=== PATIENT | male | born 1985 | race Caucasian/White ===

== ENCOUNTER 2019-11-22 | Emergency (ER) | payer BC ==
[2019-11-22 15:28] LABS: HEMATOCRIT 40.8 % (39.0-50.0); HEMOGLOBIN 13.9 g/dl (14.0-18.0); IMMATURE GRANULOCYTES 0.4 % (0.0-5.0); MEAN CORPUSCULAR HGB 32.7 pG CALC (26.0-32.0); MEAN CORPUSCULAR HGB CONC 34.1 g/L CALC (32.0-36.0); NEUT# 3.22 thou/uL (1.82-7.42); RED BLOOD COUNT 4.25 mill/uL (4.70-6.10); RED CELL DISTRI WIDTH 12.6 % (11.5-15.5)
[2019-11-22 16:09] LABS: ALBUMIN 5.1 g/dL (3.2-5.0); ALKALINE PHOSPHATASE 126 u/l (38-126); ANION GAP 23 (6-22 (CALC)); BILIRUBIN, TOTAL 1.9 mg/dL (0.0-1.4); BUN 13 mg/dL (9-20); BUN/CREATININE RATIO 21 (12-20 (CALC)); CARBON DIOXIDE 26 mmol/l (22-30); CHLORIDE 95 mmol/l (95-108); CREATININE 0.6 mg/dL (0.7-1.3); GFR > 60 ML/MIN (>=60 (CALC)); GFR FOR AFR.AMER. > 60 ML/MIN (>=60 (CALC)); POTASSIUM 3.9 mmol/l (3.5-5.1); SGOT/AST 375 u/l (17-59); SODIUM 139 mmol/l (137-146); TOTAL PROTEIN 8.8 g/dL (6.3-8.2)
[2019-11-22 16:25] LABS: ETHYL ALCOHOL 381 mg/dl (0-30)
== END 2019-11-22 20:00 | DRG 897 ==
DX: F10.129 Alcohol abuse with intoxication, unspecified (principal); Y90.8 Blood alcohol level of 240 mg/100 ml or more; G62.9 Polyneuropathy, unspecified

== ENCOUNTER 2019-11-23 05:11 | Inpatient (IN) | payer BC, OTHER ==
[~2019-11-23] VITALS: Ht 182.9 cm; Wt 76.0 kg
[2019-11-23] VITALS (10 sets, daily range): BP systolic 103–129; BP diastolic 64–89
--- NOTE | 2019-11-23 05:27 | NUR ---
VIA EMS TO ROOM IN [facility] WITH KATHERINE IN ATTENDANCE.
--- NOTE | 2019-11-23 05:28 | NUR ---
PT. TO ROOM 12 VIA EMS WITH C/O FOUND PT. IN CELL HAVING A SEIZURE, WHEN EMS ARRIVED PT. WAS POST ICTAL. NOW PT. IS AWAKE ALERT AND ORIENTED, BILATERAL HAND TREMMORS NOTED. V/S STABLE.
--- NOTE | 2019-11-23 05:39 | NUR ---
IV DILANTIN STARTED PER MD ORDER. IV ATIVAN GIVEN AND MVI BAG GIVEN PER MD ORDER.
[2019-11-23 06:11] LABS: HEMATOCRIT 40.7 % (39.0-50.0); HEMOGLOBIN 13.6 g/dl (14.0-18.0); IMMATURE GRANULOCYTES 1.3 % (0.0-5.0); MEAN CELL VOLUME 98.1 fL CALC (80.0-100.0); MEAN CORPUSCULAR HGB 32.8 pG CALC (26.0-32.0); MEAN CORPUSCULAR HGB CONC 33.4 g/L CALC (32.0-36.0); NEUT# 3.86 thou/uL (1.82-7.42); RED BLOOD COUNT 4.15 mill/uL (4.70-6.10); RED CELL DISTRI WIDTH 12.8 % (11.5-15.5)
[2019-11-23 06:37] LABS: ALBUMIN 4.9 g/dL (3.2-5.0); ALKALINE PHOSPHATASE 112 u/l (38-126); BUN 9 mg/dL (9-20); BUN/CREATININE RATIO 17 (12-20 (CALC)); CHLORIDE 95 mmol/l (95-108); CREATININE 0.5 mg/dL (0.7-1.3); ETHYL ALCOHOL 38 mg/dl (0-30); GFR > 60 ML/MIN (>=60 (CALC)); GFR FOR AFR.AMER. > 60 ML/MIN (>=60 (CALC)); POTASSIUM 4.3 mmol/l (3.5-5.1); SGOT/AST 316 u/l (17-59); SODIUM 133 mmol/l (137-146); TOTAL PROTEIN 8.1 g/dL (6.3-8.2)
[2019-11-23 06:38] LABS: ANION GAP 29 (6-22 (CALC)); BILIRUBIN, TOTAL 2.8 mg/dL (0.0-1.4); CARBON DIOXIDE 13 mmol/l (22-30)
[2019-11-23 06:48] LABS: MYOGLOBIN 332 ng/mL (0 - 121)
--- NOTE | 2019-11-23 06:51 | NUR ---
REPORT TO JOHNNIE SHARP.
--- NOTE | 2019-11-23 06:51 | NUR ---
REPORT RECIEVED FROM JES RN; PT RETURNED FROM CT; MONITORING DEVICES REAPPLIED AND VSS; PT AOX3; ADVISED ON POC; OFFICER X 1 AT BEDSIDE; CALL LIGHT WITHIN REACH; WILL CONTINUE TO MONITOR
--- NOTE | 2019-11-23 07:50 | NUR ---
PT RESTING QUIETLY ON STRETCHER; EKG COMPLETED; VSS; OFFICER X 1 AT BEDSIDE; PT DENIES ANY NEEDS AT THIS TIME; CALL LIGHT WITHIN REACH; WILL CONTINUE TO MONITOR
[2019-11-23 08:08] LABS: URINE BILIRUBIN - DIPSTICK NEGATIVE (NEGATIVE); URINE BLOOD DIPSTICK NEGATIVE (NEGATIVE); URINE COLOR YELLOW; URINE GLUCOSE - DIPSTICK NEGATIVE (NEGATIVE); URINE KETONE >=80 mg/dL (NEGATIVE); URINE LEUK ESTERASE NEGATIVE (NEGATIVE); URINE NITRITE - DIPSTICK NEGATIVE (Negative); URINE PH 5.5 (4.5-8.0); URINE PROTEIN - DIPSTICK 30 mg/dL (NEG-TRACE); URINE SPECIFIC GRAVITY 1.025; URINE UROBILINOGEN - DIPSTICK 0.2 E.U./dL (0.2)
[2019-11-23 08:12] LABS: URINE MUCUS FEW hpf (NONE-FEW)
[2019-11-23 08:13] LABS: BARBITURATES NEGATIVE (NEGATIVE); COCAINE NEGATIVE (NEGATIVE); METHADONE NEGATIVE (NEGATIVE); OXCYCODONE NEGATIVE (NEGATIVE); TETRAHYDROCANNABIONOL POSITIVE (NEGATIVE); TRICYLIC ANTIDEPRESSANTS NEGATIVE (NEGATIVE)
--- NOTE | 2019-11-23 08:51 | NUR ---
PT RESTING ON STRETCHER; NO S/S OF DISTRESS NOTED; OFFICER X1 AT BEDSIDE; PT UPDATED ON POC AND WAIT TIME FOR ADMISSION; SEIZURE PRECAUTIONS IN PLACE; CALL LIGHT WITHIN REACH; WILL CONTINUE TO MONITOR
--- NOTE | 2019-11-23 09:50 | NUR ---
PT RESTING ON STRETCHER; NO S/S OF DISTRESS NOTED; OFFICER AT BEDSIDE; ADVISED OF CONTINUED WAIT TIME; WILL CONTINUE TO MONITOR
--- NOTE | 2019-11-23 10:30 | NUR ---
PT RESTING ON STRETCHER; NO S/S OF DISTRESS NOTED; OFFICER AT BEDSIDE; ADVISED OF PENDING TRANSFER TO ICU
--- NOTE | 2019-11-23 11:00 | NUR ---
PT TO ICU3 BY STRETCHER, ABLE TO AMBULATE TO NEW BED WITH SHAKY GAIT W/ASSIST x1. APD @BEDSIDE TO RECONNECT CUFFS x2. PT COOPERATIVE. PLACED ON MONITR.
--- NOTE | 2019-11-23 11:06 | NUR ---
Admission Note Report Given to: LILA COLE Transported by: Wheelchair X Stretcher Transported with: X Nurse Transporter X Patent IV O2 X Hvac Residential Service Technician Location: X ICU MS2
--- NOTE | 2019-11-23 11:30 | NUR ---
PT BROUGHT TO [facility] ER AFTER WITNESSED SEIZURE [facility] TODAY. WAS SEEN IN THIS ER YESTERDAY FOR ETOH/DUI. PER PT, HE HASNT HAD ANYTHING TO DRINK FOR 2 WEEKS. DENIES REC DRUGS BUT THC FOUND IN UDS. 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 DENIES ALLERGIES. NO HEARING AIDS, DENTURES, GLASSES. "DIPS" 1 CAN/DAILY. DOES NOT WANT FLU OR PNA VACCINE. LAST BM WAS YESTERDAY AM, DOES NOT NEED LAXATIVES. DENIES SKIN ALTERATIONS. DENIES FALLING. DRIVES HIMSELF. LIVES ALONE. DENIES PAIN, TAKES ADVIL AT HOME FOR PAIN. CAODAISM: NONE. PRIMARY LANGUAGE: KAZAKH. NO HOME HEALTH OR DC FROM HOSPITAL. PT HAS CUFFS TO LEFT WRIST & LEFT ANKLE. SURESH GIFFORD @BEDSIDE. PT EDUCATED ON BED CONTROLS & CALLBELL. PT UPDATED ON POC, MEDICATIONS & V/S.
--- NOTE | 2019-11-23 12:15 | NUR ---
DR CURRIE & JEANETTE CHOPRA, @BEDSIDE WITH PT/ИРИНА
--- NOTE | 2019-11-23 18:50 | NUR ---
REPORT FROM Bruno ARELLANO RN. ASSUMED PT. CARE.
--- NOTE | 2019-11-23 19:30 | NUR ---
PT. FOUND SITTING UP IN BED IN NO DISTRESS. RESPS EVEN AND UNLABORED. ANXIOUS, RESTLESS. SKIN WARM AND MOIST. PT. ORIENTED TO PERSON ONLY. STATES HE IS IN [place] AND THAT THE MONTH IS MAY. REORIENTED TO SITUATION PLACE AND TIME. GUARD STATES PATIENT IS HALLUCINATING. PT. DENIES HALLUCINATIONS. PATIENT INFORMED THAT THIS IS NOT ABNORMAL FOR HIS CONDITION, BUT HE CONTINUES TO DENY. LUNGS CTA. NO EDEMA NOTED. BP STABLE. HR SINUS. INTERMITTENTLY TACHY. AFEBRILE. BALBUENA. DYANA. BOWEL SOUNDS ACTIVE THROUGHOUT. PT. REMAINS SHACKLED TO LT. ANKLE BY GUARD. IV FLUIDS INFUSING AT 100 CC/HR TO LT. AC ORDERED. COBAN APPLIED TO RT. HAND IV PATIENT DOES HAVE SOME SWEATING TO AVOID LOSS OF IV SITE. WILL CONTINUE TO MEDICATE ORDERED AND MONITOR CLOSELY. CALL LIGHT WITHIN REACH.
--- NOTE | 2019-11-23 20:45 | NUR ---
PT. ACCUCHECK IS 130. PT. HALLUCINATING. ASKING IF THIS RN HAS TO WALK ACROSS THE GRASS EVERY TIME TO WALK INTO THE ROOM. GUARD REMAINS AT BEDSIDE. UPDATED ON CONDITION AND LIKELIHOOD OF CONTINUED DETERIORATION AND INCREASED AGGITATION. WILL CONTINUE TO CLOSELY MONITOR.
--- NOTE | 2019-11-23 22:15 | NUR ---
PT. REMAINS HIGHLY ANXIOUS AND AGGITATED. RESTLESS, UNABLE TO GET COMFORTABLE. GUARD ATTEMPTING TO REPOSITION CUFFS SO PATIENT CAN BE MORE COMFORTABLE. CALL LIGHT REMAINS WITHIN REACH. WILL CONTINUE TO CLOSELY MONITOR.
[2019-11-24] VITALS (51 sets, daily range): BP systolic 102–160; BP diastolic 67–101
--- NOTE | 2019-11-24 00:20 | NUR ---
PT. GROWING INCREASINGLY AGGITATED DESPITE BEING MEDICATED ORDERED. ER MD MADE AWARE, NO NEW ORDERS AT THIS TIME. MULTIPLE EPISODES OF URINARY INCONTINENCE. PERICARE PROVIDED AND LINENS CHANGED. REPEATEDLY ATTEMPTING TO CLIMB OUT OF BED. PT. REMAINS TREMULOUS AND UNSTEADY.
--- NOTE | 2019-11-24 00:30 | NUR ---
MD MADE AWARE OF PATIENT CONDITION. NEW ORDERS RECEIVED. WILL CONTINUE TO CLOSELY MONITOR.
--- NOTE | 2019-11-24 00:54 | NUR ---
PT. RESTRAINED PER PHYSICIAN ORDERS. HE REMAINS UNCOOPERATIVE AND ANXIOUS. PT. WAS THRASHING ABOUT THE BED AND PULLING AT LINES/TUBES/IV. PT. IN CUSTODY WITH SINGLE CUFF TO LT. WRIST AND LT. ANKLE. ORIENTED TO PERSON AND TIME. PT. THINKS HE AT HIS HOME. REORIENTED TO SITUATION. HE REMAINS ATTEMPTING TO PULL AT LINES AND TUBES.
--- NOTE | 2019-11-24 01:27 | NUR ---
TELEVISION TURNED OFF TO REDUCE STIMULATION. PT. REMAINS HIGHLY AGGITATED EVEN AFTER ADMINISTRATION OF IV ATIVAN 4 MG. HR FROM THE 115 RANGE UP TO 160 AT THIS TIME. GUARD REMAINS AT BEDSIDE. PT. REMAINS RESTRAINED BILAT SOFT WRIST AND ANKLE RESTRAINTS WITH APD CUFFS TO LT. WRIST AND LT. ANKLE. WILL CONTINUE TO CLOSELY MONITOR.
--- NOTE | 2019-11-24 01:51 | NUR ---
PT. REMAINS HIGHLY AGGITATED. ATTEMPTING TO BITE HIS SPO2 MONITOR OFF AND FLOPPING ALL OVER THE BED. GUARD REMAINS AT BEDSIDE. SPO2 IS 100%, BUT HEART RATE ELEVATED AT 150-160. VERBAL ATTEMPTS TO CALM PATIENT REMAINS UNSUCCESSFUL. VIGOROUSLY ATTEMPTING TO PULL OUT OF RESTRAINTS. REORIENTATION PROVIDED. GUARD REMAINS AT BEDSIDE.
--- NOTE | 2019-11-24 02:28 | NUR ---
MEDICATE WITH LIBRIUM PER PHYSICIAN ORDERS. PT. REMAINS UNCOOPERATIVE, HIGHLY AGGITATED, DIAPHORETIC AND TACHYCARDIC. WILL CONTINUE TO PROVIDE EMOTIONAL SUPPORT AND REORIENTATION.
--- NOTE | 2019-11-24 03:15 | NUR ---
NEW ORDERS RECEIVED FROM DR. GARRISON, WILL MEDICATE ORDERED.
--- NOTE | 2019-11-24 04:09 | NUR ---
PT. FOUND TO HAVE SWEATED AND DISLODGED BOTH IV SITES AT THIS TIME. NEW #20 PLACED TO LT. FOREARM, LABS OBTAINED AT THIS TIME AND LABELED. PT. MEDICATED PER DR. GARRISON ORDERS. PT. REMAINS HIGHLY ANXIOUS AND AGGITATED. HR IN THE 160-170'S. WILL WAIT FOR EFFECT AND NOTIFY PHYSICIAN ACCORDINGLY.
--- NOTE | 2019-11-24 04:43 | NUR ---
PT. HAS BEEN RESTING WITH SNORING RESPIRATIONS AT THIS TIME FOR APPROXIMATELY 5 MINUTES. NO THRASHING ABOUT THE BED OR AGGITATION. REMAINS DIAPHORETIC, BUT NOT AGGITATED. WILL CONTINUE TO CLOSELY MONITOR.
--- NOTE | 2019-11-24 05:12 | NUR ---
PT. AGAIN AWAKE AND HIGHLY AGGITATED. PT. IS PLEASANT AND ABLE TO BE REDIRECTED, BUT CONTINUES WITH HALLUCINATIONS AND ATTEMPTING TO CLIMB OUT OF BED. NO NOT AGGRESSIVE OR ABUSIVE TOWARDS STAFF, BUT DISORIENTED AND ATTEMPTS OT PULL OF LINES AND TUBES. WILL CONTIUE TO CLOSELY MONITOR AND MEDICATE ACCORDINGLY.
[2019-11-24 05:34] LABS: HEMATOCRIT 40.4 % (39.0-50.0); HEMOGLOBIN 13.7 g/dl (14.0-18.0); IMMATURE GRANULOCYTES 0.4 % (0.0-5.0); MEAN CELL VOLUME 96.2 fL CALC (80.0-100.0); MEAN CORPUSCULAR HGB 32.6 pG CALC (26.0-32.0); MEAN CORPUSCULAR HGB CONC 33.9 g/L CALC (32.0-36.0); NEUT# 5.01 thou/uL (1.82-7.42); RED BLOOD COUNT 4.2 mill/uL (4.70-6.10); RED CELL DISTRI WIDTH 12.2 % (11.5-15.5)
[2019-11-24 05:50] LABS: ALBUMIN 4.4 g/dL (3.2-5.0); ALKALINE PHOSPHATASE 107 u/l (38-126); BILIRUBIN, TOTAL 3.6 mg/dL (0.0-1.4); BUN 9 mg/dL (9-20); BUN/CREATININE RATIO 19 (12-20 (CALC)); CHLORIDE 95 mmol/l (95-108); CPK 410 u/l (52-200); CREATININE 0.5 mg/dL (0.7-1.3); GFR > 60 ML/MIN (>=60 (CALC)); GFR FOR AFR.AMER. > 60 ML/MIN (>=60 (CALC)); MAGNESIUM 1.4 mg/dL (1.6-2.3); POTASSIUM 3.5 mmol/l (3.5-5.1); SGOT/AST 292 u/l (17-59); SODIUM 134 mmol/l (137-146); TOTAL PROTEIN 7.8 g/dL (6.3-8.2)
[2019-11-24 05:52] LABS: ANION GAP 18 (6-22 (CALC)); CARBON DIOXIDE 25 mmol/l (22-30)
[2019-11-24 05:57] LABS: MYOGLOBIN 242 ng/mL (0 - 121)
--- NOTE | 2019-11-24 06:02 | NUR ---
GUARD CHANGE AT THIS TIME. PT. REMAINS AGGITATED AND HIGHLY TREMULOUS. STATES HE NEEDS TO HAVE A BM. PLACED ON BEDPAN AT THIS TIME.
--- NOTE | 2019-11-24 06:30 | NUR ---
PT. REMOVED FROM BEDPAN. HE CONTINUES TO TRY TO CLIMB OUT OF BED. PER PHARMACY, WE DO NOT HAVE ACCESS TO PHENOBARBITAL ORDERED BY DR. GARRISON. PT. REMOVED FROM BEDPAN AT THIS TIME. STATES HE NO LONGER NEEDS TO GO.
--- NOTE | 2019-11-24 07:10 | NUR ---
awake in bed; assessment completed at this time; pt alert to person and current year only; no s/sx of pain noted; pt severely restless/ anxious; tremors noted throughout upper extremities; pupils reactive; no n/v noted; audible and visual hallucinations noted; resp even and unlabored; lungs clear throughout; skin color wnl; drenched with sweat; ra; hr reg; strong pulses; no edema noted; st 150-160s on monitor; abd soft with bs present; no bm noted per health technical writer; rajan to gravity draining clear vanessa urine; cath strap intact; #20 to rfa patent with ivf infusing without complication; no redness or edema noted at site; pt in 4 point restraints; removed and reapplied for nursing care; [employer] present at bedside; pt cuffed to bed via left ankle; pt noted thrashing about in bed; pt requesting to go get his wallet out of the driveway; officer at bedside; will continue to monitor
--- NOTE | 2019-11-24 08:09 | NUR ---
awake in bed; continues to thrash about in bed; remains very restless/ anxious; grants officer present at bedside; iv intact with ivf infusing without complication; no redness or edema noted at site; st on monitor; rajan to gravity; pt continues with visual and audible hallucinations; will continue to monitor closely
--- NOTE | 2019-11-24 08:43 | NUR ---
Dr Marinelli present at bedside to assess pt and discuss plan of care; pt very confused/ anxious; st 150s on monitor; severe tremors noted; alert to person only; present at bedside; intubation discuss
--- NOTE | 2019-11-24 09:00 | NUR ---
pt relocated to ICU bed 1
--- NOTE | 2019-11-24 09:08 | NUR ---
0906- time out performed at bedside per protocol 0908- pt intubated by Steve Plascencia with 8.0 Fr EET secured at the 24cm lip line; vent settings AC mode, rate 16, TV 550, 5.0 Peep, FiO2 40%; radiology at bedside for placement confirmation; ng tube attempted per bilat nares and unsuccessful; restraint remain intact to bilat wrist; leg restraints removed; staff mine warfare officer present at bedside; positioned; will continue to monitor
--- NOTE | 2019-11-24 09:29 | NUR ---
PT INTUBATED BY ANESTHESOLOGIST AT 0908 W/#8.0 ET TUBE ORALLY SECURED AT 24CM ISABEL CONFIRMED PLACEMENT VIA CO2 DETECTOR AND AUSCULTAION XRAY PENDING PLACED ON VENT SETTINGS ON FLOW SHEET ALARMS ON AND AUDIBLE INTUBATION PERFORMED IN ORDER TO PROTECT PT AIRWAY
--- NOTE | 2019-11-24 10:00 | NUR ---
intubated and sedated; no apparent distress noted; guard at bedside; st on monitor; rajan to gravity; vent maintained and patent; officer at bedside; repositioned; will continue to monitor
--- NOTE | 2019-11-24 10:43 | NUR ---
more arousable; vent alarming; orally suctione for lg amount of clear thick oral secretions; repositione; propofol being titrated; will continue to monitor
--- NOTE | 2019-11-24 11:00 | NUR ---
easily arousable; propofol titrated for rass of -3; st on monitor; arms and feet noted with tremors; pt with copious amount of clear thick oral secretions; ng tube placed to right nare/clamped placement confirmed via air insertion/ascult; rajan to gravity; scd's intact; restraints intact; officer present at bedside; oral care; will continue to monitor
--- NOTE | 2019-11-24 12:00 | NUR ---
intubated and sedated; no apparent distress noted; iv intact and patent; diprivan gtt infusing at 60 mcg/kg/min; st/pac on monitor; rajan to gravity; vent intact and maintainded; officer present at bedside; restraints released and reapplied for nursing care; will continue to monitor
--- NOTE | 2019-11-24 14:00 | NUR ---
intubated and sedated; no apparent distress noted; resp even and unlabored; vent intact and maintained; st on monitor; rajan to gravity; restraints released and reapplied; oral care/ suctioning done; respoitioned to left side; officer present at bedside; vital stable; diprivan gtt infusing at 60 mcg/kg/min; iv's patent; will continue to monitor
--- NOTE | 2019-11-24 16:00 | NUR ---
pt intubated and sedated; no apparent distress noted; resp even and unlabored; vent maintained; st on monitor; rajan to gravity; officer at bedside; restraints released and reapplied for nursing care; Dr Marinelli present at bedside; urine output reviewed and verbal orders received; repositioned with oral care; will continue to monitor
--- NOTE | 2019-11-24 18:01 | NUR ---
intubated and sedated; vent maintained and patent; resp even and unlabored; rajan to gravity; iv intact and patent; diprivan gtt cont at 60 mcg/kg/min; rajan to gravity; st on monitor; deputy present at bedside;
--- NOTE | 2019-11-24 18:50 | NUR ---
REPORT FROM Brendan ZIEGLER RN. ASSUMED PT. CARE.
--- NOTE | 2019-11-24 19:30 | NUR ---
PT. RESTING STABLE ON THE VENTILLATOR. RESPS EVEN, UNLABORED. PT. SEDATED ON PROPOFOL AT 60 MCG AT THIS TIME. PT. SINUS TACH IN THE LOW 100'S. BP SLIGHLY LOW AT 105 SYSTOLIC. GUARD AT BEDSIDE. PT. REMAINS IN SOFT WRIST RESTRAINTS BILATERALLY. ORAL SUCTIONING AND CARE PROVIDED AT THIS TIME. SKIN WARM AND DRY. BOWEL SOUNDS ACTIVE. 8.0 ET TUBE 24 CM AT THIS LIP, ASSIST CONTROL, RATE OF 16, TIDAL VOL-550, PEEP OF 5 AND FIO2 OF 40%. PT. DOES ATTEMPT TO TURN HEAD AWAY WHEN PERFORMING ORAL CARE. DISTIL PULSES INTACT. LUNGS CTA. CALL LIGHT WITHIN REACH. WILL CONTINUE TO CLOSELY MONITOR.
--- NOTE | 2019-11-24 20:15 | NUR ---
PT. REPOSITIONED FOR COMFORT. CALL LIGHT REMAINS WITHIN REACH. WILL CONTINUE TO CLOSELY MONITOR.
--- NOTE | 2019-11-24 22:15 | NUR ---
ORAL CARE AND SUCTIONING PROVIDED AT THIS TIME. RESPS REMAIN UNLABORED ON THE VENT. SKIN REMAINS WARM AND SLIGHTLY DIAPHORETIC. PRPOFOL DRIP INFUSING AT 70 MCG AT THIS TIME. PT. INTERMITTENTLY AGGITATED AND ATTEMPTING TO REACH FOR TUBE. WILL CONTINUE TO MONITOR NEED FOR ATIVAN PRN.
--- NOTE | 2019-11-24 23:25 | NUR ---
PT. INTERMITTENTLY RESTLESS REACHING UP TO ATTEMPT TO PULL AT LINES/TUBES. WILL CONTINUE TO MEDICATE NEEDED FOR SEDATION.
[2019-11-25] VITALS (40 sets, daily range): BP systolic 86–123; BP diastolic 48–76
--- NOTE | 2019-11-25 01:02 | NUR ---
PT. REMAINS FEBRILE. MEDICATED PER PHSYICIAN ORDERS. WILL CONTINUE TO CLOSELY MONITOR FOR EFFECT. CALL LIGHT REMAINS WITHIN REACH. GUARD AT BEDSIDE.
--- NOTE | 2019-11-25 02:05 | NUR ---
PT. REMAINS AT 70 MCG PROPOFOL AT THIS TIME. CONTINUES TO NEED PRN ATIVAN FOR ELEVATED HR AND INCREASED RESP RATE. PULLING AGAINST RESTRAINTS INTERMITTENTLY. WILL CONTINUE TO CLOSELY MONITOR.
--- NOTE | 2019-11-25 03:15 | NUR ---
PT. REMAINS STABLE ON THE VENT. GUARD REMAINS AT BEDSIDE. BP STABLE, HR REMAINS SLIGHTLY ELEVATED IN THE 100-110'S. INTERMITTENTLY NOTED TO BE PULLING AGAINST RESTRAINTS. CALL LIGHT REMAINS WITHIN REACH. WILL CONTINUE TO CLOSELY MONITOR.
--- NOTE | 2019-11-25 04:45 | NUR ---
LAB AT BEDSIDE TO DRAW PT.
--- NOTE | 2019-11-25 05:05 | NUR ---
PORT CXR IN PROGRESS.
--- NOTE | 2019-11-25 05:10 | NUR ---
RT AT BEDSIDE TO PERFORM ABG.
[2019-11-25 05:19] LABS: HEMATOCRIT 38.6 % (39.0-50.0); HEMOGLOBIN 12.9 g/dl (14.0-18.0); IMMATURE GRANULOCYTES 0.7 % (0.0-5.0); MEAN CELL VOLUME 99.5 fL CALC (80.0-100.0); MEAN CORPUSCULAR HGB 33.2 pG CALC (26.0-32.0); MEAN CORPUSCULAR HGB CONC 33.4 g/L CALC (32.0-36.0); NEUT# 7.27 thou/uL (1.82-7.42); RED BLOOD COUNT 3.88 mill/uL (4.70-6.10); RED CELL DISTRI WIDTH 12.5 % (11.5-15.5)
[2019-11-25 05:43] LABS: ALBUMIN 3.6 g/dL (3.2-5.0); ALKALINE PHOSPHATASE 85 u/l (38-126); ANION GAP 14 (6-22 (CALC)); BILIRUBIN, TOTAL 4.1 mg/dL (0.0-1.4); BUN 5 mg/dL (9-20); BUN/CREATININE RATIO 10 (12-20 (CALC)); CARBON DIOXIDE 23 mmol/l (22-30); CHLORIDE 98 mmol/l (95-108); CREATININE 0.5 mg/dL (0.7-1.3); GFR > 60 ML/MIN (>=60 (CALC)); GFR FOR AFR.AMER. > 60 ML/MIN (>=60 (CALC)); MAGNESIUM 1.7 mg/dL (1.6-2.3); POTASSIUM 3.3 mmol/l (3.5-5.1); SGOT/AST 181 u/l (17-59); SODIUM 132 mmol/l (137-146); TOTAL PROTEIN 6.7 g/dL (6.3-8.2)
--- NOTE | 2019-11-25 05:45 | NUR ---
TOTAL CARE BED BATH GIVEN. PT. TOLERATED WELL. ATIVAN DRIP INFUSING AT 2 MG/HR AT THIS TIME. REMAINS STABLE ON THE VENT. MUCH MORE RESTFUL AND LESS AGGITATED. GUARD REMAINS AT BEDSIDE AT THIS TIME. CALL LIGHT REMAINS WITHIN REACH. WILL CONTINUE TO CLOSELY MONITOR.
--- NOTE | 2019-11-25 07:40 | NUR ---
pt intubated and sedated; no apparent distress noted; assessment completed at this time; pt sedated; no s/sx pain/ no facial grimaces; no n/v noted; resp even and unlabored; lungs clear; skin color wnl; vent intact and maintained with settings of AC Mode, TV 550, rate 16, peep 5.0, FiO2 of 40%; ETT secured at the 24 cm lip line; orally and ET suctioned; hr reg; strong pulses; no edema noted; sr-st on monitor; bilat scds intact; abd soft with bs present; no bm noted per magnetic tape typewriter operator; rajan to gravity cloudy vanessa urine; cath strap rivera intact; #20 patent to rfa wiht ivf/ ativan gtt at 2mg/hr infusing without complication; #20 patent to rh with diprivan gtt infusing at 70 mcg/kg/min; #22 started to lh/ flushed and patent; no redness or edema noted at site; bilat wrist released and reapplied for nursing care; repositioned; [employer] guard at bedside; call light within reach; will continue to monitor
--- NOTE | 2019-11-25 08:00 | NUR ---
intubated and sedated; no apparent distress noted; guard at bedside; iv intact and patent; ivf/ gtt infusing without complication; no redness or edema noted at sites; sr on monitor; restraints released and reapplied for nursing care; repositioned to left side; oral care and suctioning; will continue to monitor
--- NOTE | 2019-11-25 08:10 | NUR ---
Dr Marinelli present at bedside to assess pt and discuss plan of care
--- NOTE | 2019-11-25 09:27 | NUR ---
pt o2 sat noted at 89-91%; pt noted with eyes open; teeth clinched/ clamping ETT tube; tremors felt to upper extremities; resp rate 26; ativan gtt increased to 3 mg/hr; diprivan gtt titrated to 75 mcg/kg/min; iv's patent; guard at bedside; will continue to monitor
--- NOTE | 2019-11-25 09:48 | NUR ---
lungs now coarse; bite block place; pt noted with blood in mouth/ tongue; RT present at bedside; o2 sat 91%; ETT suctioned; auto service writer remains at bedside; will continue to monitor
--- NOTE | 2019-11-25 10:00 | NUR ---
intuabted and mod sedated; ativan gtt and profocol gtt infusing; bite vblock in place; rajan to gravity; iv's patent; no redness or edema noted at site; vent intact and maintained; settings per RT; ST on monitor; repositioned to right side with suctioning/ oral care; guard at bedside; will continue to monitor
--- NOTE | 2019-11-25 10:28 | NUR ---
Dr Marinelli called per engineering technical writer; updated on decline in pt condition; lungs coarse; pt noted with decrease in o2 sat/ low 90; MD aware of vent changes; MD informed of possible seizure due to blood in mouth/tongue; orders received and to be placed;
--- NOTE | 2019-11-25 12:00 | NUR ---
intubated and sedated; no apparent distress noted; resp even and unlabored; guard present at bedside; st on monitor; febrile; tylenol administered; rajan to gravity; orally suctioned/ ETT suctioned; repositioned to left side; restraints intact/released for nursing care; will continue to monitor
--- NOTE | 2019-11-25 13:30 | NUR ---
YU Avery called per repairer typewriter; informed of temp; aware pt receive tylenol with no effect; orders to be placed; will continue to monitor
--- NOTE | 2019-11-25 13:45 | NUR ---
ice packs applied to bilat axilla area;
--- NOTE | 2019-11-25 14:02 | NUR ---
intubated and sedated; no apparent distress noted; resp even and unlabored; spont resp noted; iv intact and patent; ativan gtt and propofol infusing without complication; st on monitor; rajan to gravity; repositioned to right side; oral care; bite block intact; will continue to monitor
--- NOTE | 2019-11-25 15:15 | NUR ---
intuabed and sedated; tremors noted to upper and lower extremities; resp rate 30/ vent set at 16; repositioned; medicated with toradol for fever; st 118-120s on monitor; will continue to monitor
--- NOTE | 2019-11-25 16:00 | NUR ---
intubated and sedated; no apparent distress noted; resp even and unlabored resp rate 26; o2 sat 95%; st on monitor; rajan to gravity; vent intact and maintained; rajan to gravity; repositioned to right side; guard at bedside; restraints continued; temp 100.2; will continue to monitor
--- NOTE | 2019-11-25 17:04 | NUR ---
officer Nelson with [employer] present at bedside; officer states pt has been bonded out of alf and is NO LONGER an inmate; [employer] has removed cuff amd released pt from their custody;
--- NOTE | 2019-11-25 18:00 | NUR ---
intubated and sedated; no apparent distress noted; repositioned to supine; iv intact with ativan gtt/propofol gtt infusing without complication; rajan to gravity; vent intact and patent; st on monitor;
--- NOTE | 2019-11-25 18:11 | NUR ---
family present at bedside; update provided; mother Jelena requesting to stay the night;
--- NOTE | 2019-11-25 18:45 | NUR ---
REPORT FROM Brendan ZIEGLER RN. ASSUMED PT. CARE.
--- NOTE | 2019-11-25 19:15 | NUR ---
PT. FOUND RESTING STABLE ON THE VENT IN ON DISTRESS. 8.0 ET TUBE 24 CM AT THE LIP. A/C-16, TIDAL VOL-550, PEEP OF 8, FIO2 OF 60%. REMAINS IN RESTRAINS AT THIS TIME. FAMILY UPDATED ON PATIENT STATUS. PT. MILDLY AGGITATED. FAMILY INFORMED OF NEED FOR REST AT THIS. UPDATED ON PLAN OF CARE. BOWEL SOUNDS ACTIVE. LUNGS CTA. DISTIL PULSES INTACT. VSS, SLIGHTLY TACHY. AFEBRILE AT 99.3 AT THIS TIME.
--- NOTE | 2019-11-25 20:15 | NUR ---
PT. REPOSITIONED FOR COMFORT. ORAL CARE AND SUCTIONING PROVIDED AT THIS TIME. PT. TOLERATED WELL. SKIN REMAINS WARM AND DRY. DYANA. BP/HR STABLE. WILL CONTINUE TO CLOSELY MONITOR.
--- NOTE | 2019-11-25 22:02 | NUR ---
PT. REMAINS STABLE ON THE VENT. CALL LIGHT REMAINS WITHIN REACH. ROM AND RELEASE PROVIDED. REMAINS WARM TO TOUCH, MILDLY MOIST. BP/HR STABLE. MEDICATED PER PHYSICIAN ORDERS. NO CHANGES IN VENT SETTINGS.
--- NOTE | 2019-11-25 23:54 | NUR ---
ZOSYN INFUSING WITHOUT SIGNS OF INFILTRATION OR REACTION NOTED. RESPS EVEN, UNLABORED ON THE VENT. RT AT BEDSIDE AND SUCTIONING PROVIDED. SUCTIONING PERFORMED TO RT. NARES WELL MODERATE AMOUNT OF NASAL DISCHARGE YELLOW/GREEN NOTED. IV FLUIDS INFUSING ORDERED. PROPOFOL INFUSING AT 75 MCG AT THIS TIME. ATIVAN DRIP INFUSING AT 4 MG/HR. REMAINS INTERMITTENTLY ATTEMPTING TO REACH UP. WILL CONTINUE TO CLOSELY MONITOR.
[2019-11-26] VITALS (50 sets, daily range): BP systolic 81–107; BP diastolic 44–66
--- NOTE | 2019-11-26 00:42 | NUR ---
SPOKE TO PATIENTS MOTHER AND UPDATED ON HIS CURRENT STATUS. REMAINS STABLE ON THE VENT. SETTINGS UNCHANGED. ATIVAN DRIP INFUSING AT 4 MG/HR, PROPOFOL DRIP AT 75 MCG. REMAINS WITH SATISFACTORY SEDATION AT THIS TIME. WILL CONTINUE TO CLOSELY MONITOR. REPOSITIONED TO LT. SIDE AT THIS TIME. AFEBRILE.
--- NOTE | 2019-11-26 02:15 | NUR ---
ORAL CARE AND SUTIONIN PROVIDED. PT. REMAINS ON 4MG/HR ATIVAN DRIP AND 75 MCG PROPOFOL DRIP. REMAINS RESTFUL ON THE VENT. ORAL CARE AND SUCTIONING PROVIDED AND PT. REPOSITOINED FOR COMFORT. CALL LIGHT REMAINS WITHIN REACH.
--- NOTE | 2019-11-26 03:55 | NUR ---
PT. STATUS REMAINS UNCHANGED ON THE VENTILLATOR. SINUS IN THE 90'S NOW AT THIS TIME. CALL LIGHT WITHIN REACH. BP/HR STABLE. PT. WITHOUT RESTLESSNESS AT THIS TIME. STABLE.
--- NOTE | 2019-11-26 04:40 | NUR ---
LAB AT BEDSIDE AT THIS TIME TO DRAW PATIENT.
[2019-11-26 05:24] LABS: HEMATOCRIT 34.2 % (39.0-50.0); HEMOGLOBIN 11.3 g/dl (14.0-18.0); MEAN CELL VOLUME 99.7 fL CALC (80.0-100.0); MEAN CORPUSCULAR HGB 32.9 pG CALC (26.0-32.0); RED BLOOD COUNT 3.43 mill/uL (4.70-6.10); RED CELL DISTRI WIDTH 13.1 % (11.5-15.5)
[2019-11-26 05:44] LABS: ALKALINE PHOSPHATASE 56 u/l (38-126); ANION GAP 11 (6-22 (CALC)); BILIRUBIN, TOTAL 2.7 mg/dL (0.0-1.4); BUN 9 mg/dL (9-20); BUN/CREATININE RATIO 18 (12-20 (CALC)); CARBON DIOXIDE 21 mmol/l (22-30); CHLORIDE 104 mmol/l (95-108); CPK 319 u/l (52-200); CREATININE 0.5 mg/dL (0.7-1.3); GFR > 60 ML/MIN (>=60 (CALC)); GFR FOR AFR.AMER. > 60 ML/MIN (>=60 (CALC)); MAGNESIUM 1.4 mg/dL (1.6-2.3); POTASSIUM 3.2 mmol/l (3.5-5.1); SGOT/AST 86 u/l (17-59); SODIUM 132 mmol/l (137-146)
[2019-11-26 05:49] LABS: ALBUMIN 2.5 g/dL (3.2-5.0); TOTAL PROTEIN 5.1 g/dL (6.3-8.2)
--- NOTE | 2019-11-26 06:15 | NUR ---
COMPLETE BED BATH AND LINEN CHANGE PERFORMED. PT. TEMP IMPROVED AT THIS TIME. 99.7 AXILLARY. BP/HR STABLE. CALL LIGHT REMAINS WITHIN REACH. WILL CONITNUE TO CLOSELY MONITOR.
--- NOTE | 2019-11-26 07:02 | NUR ---
PORT XR COMPLETED
--- NOTE | 2019-11-26 07:25 | NUR ---
Pt remains intubated and sedated; no apparent distress noted; assessment completed, see interventions; pt sedated; no s/sx pain/ discomfort noted; resp even and unlabored; lungs clear; skin color wnl; vent intact and maintained; see flowsheet for settings; ETT at the 22 cm lip line; orally and ET suctioned; 12F NG intact in r nare to LISscant drng noted ; hr reg; strong pulses; some general extremity edema noted; sr-st on monitor; bilat scds intact; abd soft with bs present; no bm noted per telegraphic typewriter operator; rajan to gravity cloudy tea urine; cath strap rivera intact; #20 bilat wrist released and reapplied for nursing care; repositioned; call light within reach; will continue to monitor
--- NOTE | 2019-11-26 09:00 | NUR ---
Phone consent obtained from pt's parents for tlc insertion; at bedside currently performing insertion.
--- NOTE | 2019-11-26 09:40 | NUR ---
PARENTS AT BEDSIDE UPDATED REGARDING PLAN OF CARE.
--- NOTE | 2019-11-26 10:08 | NUR ---
Pt repositioned and oral care performed; call bean within reach; restraints remain in place to prevent self extubation, spoke with parents via telephone and updated them regarding plan of care.
--- NOTE | 2019-11-26 11:39 | NUR ---
PT RESTING, NO S/S OF DISTRESS NOTED, CALL SOW WITHIN REACH
--- NOTE | 2019-11-26 13:15 | NUR ---
PT RESTING, TURNED Q2H, FAMILY MEMBERS INTERMITTENLY AT BEDSIDE, AWARE OF URINE OUTPUT, BOLUS INFUSING ORDERED WILL CONTINUE TO MONITOR.
--- NOTE | 2019-11-26 13:27 | NUR ---
S: RENÉ PATINO is a 34 M who presents with sepsis, aspiration pneumonia, and alcohol withdrawal. He has a history of neuropathy, ETOH abuse, and seizures. All medications in patient's chart were reviewed. O: VS: BP: 97/449 mmHg, P: 104 beats/min, RR: 20 breaths/min, T: 98.6 F W: 76 kg, HT: 72 in, Scr: 0.5 mg/dL, CrCl: 189 ml/min A: Blood culture is pending. Sputum culture is pending. Preliminary results show normal respiratory isiah. P: Patient is on Zosyn 3.375 gm IV Q6H. Vancomycin ordered for pharmacy to dose. Start Vancomycin 1 gm IV Q8H at 0200,1000,1800. Vancomycin trough is drawn before the 4th dose on 11/27/19 at 09:30. Vancomycin goal trough is between 15-20 mcg/ml. Pharmacy will follow and or advise on antibiotics use as needed.
--- NOTE | 2019-11-26 14:36 | NUR ---
URINE OUTPUR REMAINS SUBOPTIMAL, LIZETH NOTIFY , MOTHER CURRENTLY AT BEDSIDE, CALL SOW WITHINR EACH; SLIGHTLY FEBRILE WILL MEDICATE ORDERED
--- NOTE | 2019-11-26 15:30 | NUR ---
MD AWARE OF URINE OUTPUT AND LASIX ORDERED AND ADMINISTERED ORDERED.
--- NOTE | 2019-11-26 15:47 | NUR ---
PT RESTING, WILL MONITOR URINE OUT PUT POST LASIX, MOM REMAINS AT BEDSIDE
--- NOTE | 2019-11-26 15:57 | NUR ---
R.T. AT BEDSIDE DECREASEING FiO2 TO 40%
--- NOTE | 2019-11-26 15:59 | NUR ---
FIO2 DECREASED TO 40%
--- NOTE | 2019-11-26 16:21 | NUR ---
REPORT RECEIVED FROM LILA KAMINSKI.
--- NOTE | 2019-11-26 16:30 | NUR ---
MOTHER AT BEDSIDE.
--- NOTE | 2019-11-26 17:13 | NUR ---
RT AT BEDSIDE FOR BREATHING TREATMENT.
--- NOTE | 2019-11-26 19:40 | NUR ---
PT REPOSITIONED ONTO RIGHT SIDE WITH PILLOWS; FEET ELEVATED. PT DIAPHORETIC WITH HOT MOIST SKIN; TEMP 97.7; ACCU CHECK 113. PT RESTING WITH RASS SCALE OF -4. INTUBED WITH SIZE 8 TUBE; 24 AT THE LIP; FIO2 40%; PEEP 8; RESP AT 16; TV 550. NG TUBE TO RIGHT NARE; 12F 24 AT THE NOSE; SECURED TO NOSE. PROPOFOL DRIP INFUSING AT 75 MCG/MIN; ATIVAN AT 4MG/HR; D5NS AT 150 ML/HR. RIGHT SUBCLAVIAN TRIPLE LUMEN APPEARS HEALTHY AND ALL LUMENS FLUSH WELL. PERIPHERAL LINES TO RFA AND RH APPEAR HEALTHY AND FLUSH. BILATERAL SOFT WRIST RESTRAINTS INTACT WITH GOOD CSM TO HANDS. CORRALES CATHETER DRAINING YELLOW/GREEN COLORED URINE IN ADEQUATE AMOUNTS; SECURED TO LEFT THIGH. NICOTINE PATCH ON. SCD'S INTACT TO BLE. SAFETY MEASURES IN PLACE. NEEDS ARE ANTICIPATED BY STAFF.
--- NOTE | 2019-11-26 20:07 | NUR ---
LEVOPHED TITRATED DOWN TO 70 MCG/MIN DUE TO HYPOTENSION. BP CURRENTLY 82/48 MAP 56 HR 94.
--- NOTE | 2019-11-26 20:29 | NUR ---
LEVOPHED TITRATED DOWN TO 65 MCG/MIN. BP 87/51 MAP 62 HR 94.
--- NOTE | 2019-11-26 21:15 | NUR ---
LEVOPHED TITRATED DOWN TO 60 MCG/MIN; BP 85/44 MAP 59 HR 84. RASS SCORE REMAINS -4; PT REMAINS ADEQUATELY SEDATED. ATIVAN CONTINUES TO INFUSE AT 4MG/HR AND D5NS AT 150 ML/HR. PT RESPOSITIONED ONTO BACK WITH HOB ELEVATED 30 DEGREES.
--- NOTE | 2019-11-26 22:36 | NUR ---
ATIVAN TITRATED DOWN TO 2 MG/HR. LEVOPHED NOW INFUSING AT 55 MCG/MIN. BP 87/54 MAP 65 HR 91. PT RESTING WITH NO SIGNS OF DISTRESS. WILL CONTINUE TO MONITOR.
--- NOTE | 2019-11-26 23:06 | NUR ---
TUBING REPLACED ON NEW BOTTLE OF DIPRIVAN. PT HAD LARGE THICK YELLOW SPUTUM DRAINING FROM MOUTH; ORAL CARE GIVEN. RT AT BEDSIDE FOR DEEP SUCTION AND BREATHING TREATMENT. REPOSITIONED ONTO LEFT SIDE; RESTRAINTS REMOVED FOR REPOSITIONING AND REAPPLYED.
--- NOTE | 2019-11-26 23:55 | NUR ---
BLOOD PRESSURES ARE IMPROVING; 104/66 MAP 81 HR 95. PT RESTING COMFORTABLY. AFEBRILE. SKIN WARM AND DRY.
[2019-11-27] VITALS (51 sets, daily range): BP systolic 90–128; BP diastolic 52–97
--- NOTE | 2019-11-27 02:19 | NUR ---
VSS; SPO2 100%. PROPOFOL REMAINS AT 55 MCG/MIN AND ATIVAN AT 2 MG/HR. REPOSTIONING EVERY 2 HOURS WITH PILLOWS. CORRALES CONTINUES TO DRAIN YELLOW/GREEN COLORED URINE; LIGHT BROWN GASTRIC CONTENT FROM NG TUBE IN SMALL AMOUNTS. SAFETY MEASURES IN PLACE.
--- NOTE | 2019-11-27 04:53 | NUR ---
LABS DRAWN FROM R SUBCLAVIAN CENTRAL LINE WITHOUT DIFFICULTY. RT AT BEDSIDE FOR BREATHING TREATMENT AND ABG. PT REPOSITIONED.
[2019-11-27 05:03] LABS: HEMOGLOBIN 10.8 g/dl (14.0-18.0); IMMATURE GRANULOCYTES 5.8 % (0.0-5.0); MEAN CELL VOLUME 100.9 fL CALC (80.0-100.0); MEAN CORPUSCULAR HGB CONC 32.7 g/L CALC (32.0-36.0); PLATELET COUNT 126 thou/uL (130-400); RED BLOOD COUNT 3.27 mill/uL (4.70-6.10); RED CELL DISTRI WIDTH 13.3 % (11.5-15.5)
[2019-11-27 05:19] LABS: ALBUMIN 2.5 g/dL (3.2-5.0); ALKALINE PHOSPHATASE 66 u/l (38-126); ANION GAP 9 (6-22 (CALC)); BILIRUBIN, TOTAL 2.5 mg/dL (0.0-1.4); BUN 10 mg/dL (9-20); BUN/CREATININE RATIO 21 (12-20 (CALC)); CARBON DIOXIDE 22 mmol/l (22-30); CHLORIDE 106 mmol/l (95-108); CREATININE 0.5 mg/dL (0.7-1.3); GFR > 60 ML/MIN (>=60 (CALC)); GFR FOR AFR.AMER. > 60 ML/MIN (>=60 (CALC)); POTASSIUM 3.2 mmol/l (3.5-5.1); SGOT/AST 57 u/l (17-59); SODIUM 134 mmol/l (137-146); TOTAL PROTEIN 5.1 g/dL (6.3-8.2)
[2019-11-27 05:24] LABS: MAGNESIUM 2.3 mg/dL (1.6-2.3)
[2019-11-27 05:37] LABS: BAND 34 % (0-8); MANUAL DIFFERENTIAL YES
--- NOTE | 2019-11-27 06:16 | NUR ---
RADIOLOGY AT BEDSIDE FOR CXR.
--- NOTE | 2019-11-27 08:25 | NUR ---
ATIVAN & PROPOFOL DRIPS STOPPED FOR WAKE TRIAL. DR BAUMANN @BEDSIDE. RT NOTIFIED.
--- NOTE | 2019-11-27 08:33 | NUR ---
ORAL SUCTION COMPLETE. PT WINCING EYES, NOT FOLLOWING COMMANDS YET. SKIN WARM/ DIAPHORETIC. TEMP 98.1 TYMP. CURTAINS OPEN & LIGHTS ON.
--- NOTE | 2019-11-27 08:45 | NUR ---
PT RESPONDING BY SQUEEZING MY HAND, OPENING EYES. RT & MD @BEDSIDE.
--- NOTE | 2019-11-27 08:59 | NUR ---
PT STILL WAKING UP, BREATHING OVER TUBE.
--- NOTE | 2019-11-27 09:17 | NUR ---
RT FREQUENTLY AT BEDSIDE TO ADJUST VENT SETTINGS. @BEDSIDE FOR OBS.
--- NOTE | 2019-11-27 09:30 | NUR ---
FREQUENT SUCITONING COMPLETED. MOM CALLED TO INFORM OF EXTUBATION, SHE "WILL HEAD THIS WAY". LINES FLUSHED OF PROPOFOL & ATIVAN.
--- NOTE | 2019-11-27 09:33 | NUR ---
OLD NICOTENE PATCH REMOVED, NEW PATCH APPLIED TO LEFT UPPER ARM.
--- NOTE | 2019-11-27 09:48 | NUR ---
VANCO THROUGH DRAWN FROM CENTRAL LINE.
--- NOTE | 2019-11-27 10:00 | NUR ---
DR BAUMANN @BEDSIDE. RBVO TO DC ALL IVF, INCLUDING BANANA BAG.
--- NOTE | 2019-11-27 10:37 | NUR ---
MOM & DAD @BEDSIDE UPDATED.
--- NOTE | 2019-11-27 11:27 | NUR ---
RT @BEDSIDE FOR BREATHING TREATMENT. PARENTS @BEDSIDE PRAYING OVER PT.
--- NOTE | 2019-11-27 11:28 | NUR ---
PT UNABLE TO WEAN ON INITIAL TRY. PT PLACED IN SIMV MODE PS 10 RESTING WITH FAMILY AT BEDSIDE AT THIS TIME.
--- NOTE | 2019-11-27 13:14 | NUR ---
S: RENÉ PATINO is a 34 M who presents with aspiration pneumonia and sepsis. He has a history of neuropathy, ETOH abuse, and seizures. All medications in patient's chart were reviewed. O: VS: BP: 126/68 mmHg, P: 98 beats/min, RR: 22 breaths/min, T: 98.1 F W: 76.345 kg, HT: 72 in, Scr: 0.5 mg/dL, CrCl: 189 ml/min Vancomycin trough on 11/27/19 at 09:30 was 9 mcg/mL. A: Blood culture is pending. Final sputum culture shows normal respiratory isiah. Vancomycin trough is subtherapeutic. P: Patient is on Zosyn 3.375 gm IV Q6H. Vancomycin ordered for pharmacy to dose. Increase Vancomycin to 1250 mg IV Q8H at 0200, 1000, and 1800. Vancomycin trough to be drawn on 11/28/19 at 17:30. Vancomycin goal trough is between 15-20 mcg/ml. Pharmacy will follow and or advise on antibiotics use as needed.
--- NOTE | 2019-11-27 13:45 | NUR ---
DR BAUMANN @BEDSIDE. RBVO START NS IV @75ML/HR. TRY TO WEAN AGAIN AT 1600 TODAY.
--- NOTE | 2019-11-27 14:58 | NUR ---
REGISTRATION AT [facility] TO SPEAK WITH FAMILY.
--- NOTE | 2019-11-27 15:58 | NUR ---
PROPOFOL STOPPED FOR WEAN TRIAL.
--- NOTE | 2019-11-27 16:02 | NUR ---
RT @BEDSIDE SUCIONING PT. PT EYES OPEN, SMILE TO DADS VOICE.
--- NOTE | 2019-11-27 16:39 | NUR ---
PT STILL DROWSY- OCCASSIONAL EYE OPENING, FEET REACTIVE TO REFLEX CHECK. PT OCCASSIONALLY PULLING ON RESTRAINTS. NO FOLLOWING DIRECTION YET. WEAK SQUEEZE. MOM & DAD ON EACH SIDE TRYING TO WAKE PT.
--- NOTE | 2019-11-27 16:46 | NUR ---
ICE PACK PLACED ON PTS GROIN TO HELP STIMULATE PT AWAKE.
--- NOTE | 2019-11-27 17:00 | NUR ---
PROPOFOL RESTARTED, WILL TRY WAKE TRIAL AGAIN TOMORROW. VENT LEFT ON SIMV BY RT TO "ALLOW PT TO USE OWN LUNGS"
--- NOTE | 2019-11-27 17:58 | NUR ---
RT CALLED TO ROOM AFTER VENT ALARMING FOR HIGH RESPIRATIONS. VENT PLACED BACK IN AC
--- NOTE | 2019-11-27 19:13 | NUR ---
REPORT RECEIVED FROM LILA COLE.
--- NOTE | 2019-11-27 20:51 | NUR ---
PT RESTING WITH EYES CLOSED; RASS SCORE OF -3. PROPOFOL INFUSING AT 25 MCG/MIN; NS AT 75. R/U TEMPERAURE OF 99.7. PT REPOSITIONED WITH PILLOWS. CLEAR YELLOW URINE EMPTIED FROM CORRALES. SOFT WRIST RESTRAINTS ARE ON; 2 FINGERWIDTH BETWEEN RESTRAINT AND SKIN; GOOD CSM TO HANDS. NEEDS ARE ANTICIPATED BY STAFF.
--- NOTE | 2019-11-27 23:27 | NUR ---
RT AT BEDSIDE FOR BREATHING TREATMENT AND SUCTIONING.
[2019-11-28] VITALS (26 sets, daily range): BP systolic 104–149; BP diastolic 59–89
--- NOTE | 2019-11-28 00:03 | NUR ---
RT AT BEDSIDE. SPO2 DECREASED TO 89% TEMPORARILY AND REMAINED AT 92%. O2 ON VENT INCREASED FROM 32% TO 40%; SPO2 NOW 92%. RT AT BEDSIDE TO EVALUATE. WILL CONTINUE TO MONITOR.
--- NOTE | 2019-11-28 02:59 | NUR ---
COMPLETE BED GIVEN WITH LINEN CHANGE AND ORAL CARE. RESTRAINTS AND SCD'S REMOVED FOR BATH AND REAPPLIED; ALL SOILED EQUIPMENT REPLACED. 650ML OF DARK BRINA URINE EMPTIED FROM URINAL. VSS. NOW 100% SPO2 ON 40% ASSIST CONTROLLED VENTILATION. PT POSITIONED IN SEMI FOWLERS WITH HEELS OFFLOADED WITH PILLOWS. SKIN INTACT. SAFETY MEASURES IN PLACE.
--- NOTE | 2019-11-28 04:34 | NUR ---
RT AT BEDSIDE FOR BREATHING TREATMENT.
--- NOTE | 2019-11-28 05:13 | NUR ---
RADIOLOGY AT BEDSIDE FOR CXR. LABS OBTAINED FROM CENTRAL LINE AND FLUSHED PER PROTOCOL. ABGS OBTAINED FROM RT. PT REPOSITIONED ONTO RIGHT SIDE.
[2019-11-28 05:33] LABS: ALBUMIN 2.7 g/dL (3.2-5.0); ALKALINE PHOSPHATASE 73 u/l (38-126); ANION GAP 10 (6-22 (CALC)); BILIRUBIN, TOTAL 3.5 mg/dL (0.0-1.4); BUN 9 mg/dL (9-20); BUN/CREATININE RATIO 16 (12-20 (CALC)); CHLORIDE 100 mmol/l (95-108); CREATININE 0.5 mg/dL (0.7-1.3); GFR > 60 ML/MIN (>=60 (CALC)); GFR FOR AFR.AMER. > 60 ML/MIN (>=60 (CALC)); POTASSIUM 2.8 mmol/l (3.5-5.1); SGOT/AST 64 u/l (17-59); SODIUM 136 mmol/l (137-146); TOTAL PROTEIN 5.4 g/dL (6.3-8.2)
[2019-11-28 05:39] LABS: CARBON DIOXIDE 29 mmol/l (22-30)
[2019-11-28 05:40] LABS: HEMOGLOBIN 10.9 g/dl (14.0-18.0); MEAN CELL VOLUME 99.7 fL CALC (80.0-100.0); MEAN CORPUSCULAR HGB 32.9 pG CALC (26.0-32.0); RED BLOOD COUNT 3.31 mill/uL (4.70-6.10)
--- NOTE | 2019-11-28 09:08 | NUR ---
WEAN TRIAL STARTED. AT BEDSIDE
--- NOTE | 2019-11-28 09:12 | NUR ---
DR BAUMANN AT BEDSIDE, PT BEING WEANED DOWN FROM PROPOFOL. PARENTS AT BEDSIDE ALSO. PT NOT RESPONSIVE YET, TO MONITOR.
--- NOTE | 2019-11-28 09:33 | NUR ---
PT PLACED ON SPONTANIOUS MODE WITH PS 10. FOLLOWING COMMANDS AT THIS TIME.
--- NOTE | 2019-11-28 10:08 | NUR ---
PT EXTUBATED WITHOUT COMPLICATION. PLACED ON 8LHFNC RR 22 SAO2 96%. FAMILY AT BEDSIDE.
--- NOTE | 2019-11-28 10:18 | NUR ---
PT WAS INTUBATED WHEN SHIFT STARTED. SINCE THEN, PROPOFOL HAS BEEN TAPERED OFF AND WAS EXTUBATED. PT ABLE TO RESPOND APPROPRIATELY WITH ENCOURAGEMENT, NOW ON HI FLOW OXYGEN, SATS NOW IN MID 90s. PARENTS HAVE BEEN AT BEDSIDE.
--- NOTE | 2019-11-28 13:13 | NUR ---
PT CONTINUES LETHARGIC WITH SLOW RESPONSES, ALTHOUGH HIS OXYGENATION IS MAINTAINED. PT HAS BEEN LIFTED OOB INTO CHAIR AT BEDSIDE. PT SEEN WITH HEAD DOWN, RESPONDING ONLY TO QUESTIONS ASKED HIM.
--- NOTE | 2019-11-28 17:10 | NUR ---
PT HAS REMAINED OOB IN CHAIR FOR SEVERAL HOURS. HE CONTINUES TO BE SLOW TO RESPOND, BUT MOVES ALL EXTREMITIES APPROPIATELY WHEN ASKED. SLIGHT SWEATING NOTED TO FACE. OLD IVs REMOVED PER R SUBCLAVIAN TLC IN PLACE AND THEY WERE DUE TO BE CHANGED. PT IN NO DISTRESS, NO COMPLAINT OF PAIN.
--- NOTE | 2019-11-28 18:39 | NUR ---
PT SEEN WITH HANDS ON RAIL, TRYING TO GET OOB. AT THIS POINT HE LACKS THE STRENGTH TO PULL HIMSELF OVER RAIL. PT ADVISED TO REFRAIN, BUT HE IS NOT LISTENING. NO ACUTE DISTRESS, PT DOES DROP HIS SATS WITH THE EFFORT TO GET OOB, RECOVERS QUICKLY WHEN HE STOPS EXERTING HIMSELF.
--- NOTE | 2019-11-28 19:05 | NUR ---
REPORT GIVEN BY GIDEON SHARP. PATIENT AWAKE AND ATEMPTING TO CLIMB OUT OF BED, PATIENT REPOSTIONED. RESP EVEN AND UNLABORED. SPEECH IS GARBLED. FALL PRECAUTIONS IN PLACE. PATIENT INFORMED TO CALL WITH ANY QUESTIONS OR CONCERNS.
--- NOTE | 2019-11-28 19:54 | NUR ---
PATIENT WAS SHOWING SIGNS OF AGGRESSION AND AGITATION. ATTEMPTED TO GIVE PATIENT LIBRIUM, PATIENT SPIT THE PILL OUT. ATTEMPTING TO HIT STAFF. PATIENT GIVEN ATIVAN AT THIS TIME.
--- NOTE | 2019-11-28 20:15 | NUR ---
TALKED TO PATIENTS MOTHER ON THE PHONE AND UPDATED HER ABOUT PATIENT CONDITION. INFOMRED HER THAT PATIENT WAS GIVEN ATIVAN AFTER PATIENT WAS SWINGING AND ATTEMPTING TO HIT STAFF. PATIENT WAS REDIRECTED AND WAS ATTEMPTED TO BE GIVEN LIBIURM PRIOR TO THE ATIVAN. PATIENT SPIT LIBRIUM OUT AT STAFF AND ATTEMPTED TO GET OUT OF BED. PATIENT'S MOTHER STATED THAT SHE WANTED ME TO TALK TO THE DOCTOR TO VERIFY THAT ATIVAN CAN BE GIVEN AT THIS TIME.
--- NOTE | 2019-11-28 20:39 | NUR ---
I SPOKE WITH WHO IS THE SOFTBALL COACH DOCTOR. INFORMED HIM OF THE PATIENT'S MOTHERS CONCERN ABOUT THE PATIENT BEING GIVEN ATIVAN. SAID THAT HE WAS INFORMED THAT THE PATIENT WAS NOT TO BE GIVEN ATIVAN. MD NOTES FOR THE DAY WERE NOT RELEASED FOR [facility] STAFF TO READ. I WAS NOT ABLE TO FIND IN ANY NURSING OR MD NOTES THAT ARE AVILABLE THAT STATE THAT PATIENT IS NOT TO BE GIVEN ATIVAN. TWO DIFFERENT ORDERS FOR ATIVAN ARE STILL ACTIVE ON THE DEC AT THIS TIME. NEW ORDERS GIVEN BY .
--- NOTE | 2019-11-28 21:48 | NUR ---
PARENTS PRESENT AT BEDSIDE
[2019-11-29] VITALS (17 sets, daily range): BP systolic 107–124; BP diastolic 59–77
--- NOTE | 2019-11-29 00:15 | NUR ---
PATIENT RESTING WITH EYES CLOSED FAMILY PRESENT AT BEDSIDE. RESP EVEN AND UNLABORED. ZOSYN GIVEN AT THIS TIME PER MD ORDERS. NO S/S OF DISTRESS NOTED.
--- NOTE | 2019-11-29 02:08 | NUR ---
PATIENT RESTING WITH EYES CLOSED. RESP EVEN AND UNLABORED. VANCO GIVEN PER MD ORDER
--- NOTE | 2019-11-29 04:05 | NUR ---
PATIENT RESTING WITH EYES CLOSED. RESP EVEN AND UNALBORED. NO S/S OF DISTRESS NOTED.
--- NOTE | 2019-11-29 05:36 | NUR ---
PATIENT'S BRACELET WENT HOME WITH HER
[2019-11-29 06:11] LABS: HEMATOCRIT 33.9 % (39.0-50.0); HEMOGLOBIN 11.3 g/dl (14.0-18.0); MEAN CORPUSCULAR HGB 32.7 pG CALC (26.0-32.0); MEAN CORPUSCULAR HGB CONC 33.3 g/L CALC (32.0-36.0); RED BLOOD COUNT 3.46 mill/uL (4.70-6.10); RED CELL DISTRI WIDTH 12.5 % (11.5-15.5)
[2019-11-29 06:38] LABS: ALKALINE PHOSPHATASE 100 u/l (38-126); ANION GAP 12 (6-22 (CALC)); BUN 7 mg/dL (9-20); BUN/CREATININE RATIO 14 (12-20 (CALC)); CARBON DIOXIDE 30 mmol/l (22-30); CHLORIDE 97 mmol/l (95-108); CREATININE 0.5 mg/dL (0.7-1.3); GFR > 60 ML/MIN (>=60 (CALC)); GFR FOR AFR.AMER. > 60 ML/MIN (>=60 (CALC)); POTASSIUM 3.1 mmol/l (3.5-5.1); SGOT/AST 69 u/l (17-59); SODIUM 136 mmol/l (137-146); TOTAL PROTEIN 5.7 g/dL (6.3-8.2)
[2019-11-29 06:45] LABS: MAGNESIUM 1.4 mg/dL (1.6-2.3)
--- NOTE | 2019-11-29 07:10 | NUR ---
pt resting in bed with eyes closed; no apparent distress noted; mother present at bedside; assessment completed at this time; pt arousable to verbal stimuli; alert to person and time; confused to place; denies pain; no n/v noted; resp even and unlabored/ shallow; lungs clear/ diminished bases; skin color wnl; o2 per nc at 3L; hr reg; strong pulses; no edema noted; bilat scds intact; abd soft with bs present; no bm noted per press writer; raajn to gravity with cath rivera intact; TLC flushed and patent to right subclav; brisk blood return/ dressing cdil ivf infusing at 10cc/hr; no redness or edema noted at site; mother Delmi present at bedside; opport for questions provided; pt and mother updated in plan of care; mother request for pt not to Ativan; press writer has explained to mother interventions (including restraints) that will be taken if pt is anxious/ agitated/ combative; family encouraged to stay at bedside if needed to assist with keeping pt calm; call light within reach; will continue to monitor
--- NOTE | 2019-11-29 07:28 | NUR ---
Vancomycin consult Weight: 76 Kilograms Current dose being given: 1250 mg Current dosing interval: 8 hrs Current infusion time (hrs): 2 Trough level obtained: 10 mcg/ml Timing of trough - # of hrs before next dose: 0.5 Hrs New rate constant (ganesh): 0.161 hr-1 Half-life: 4.31 Hours Vd from levels: 53.20 Liters (0.7 L/kg) CLvanco= 8.565 L/hr Vancomycin 1500 mg q 8 hrs starting at 1000 today Infuse over 2 hrs Expected Cpeak: 33 mcg/mL Expected Ctrough: 15 mcg/mL Next trough on 11/30/19 at 1730
--- NOTE | 2019-11-29 08:30 | NUR ---
mother present at nursing station requesting pt to be moved; staff at bedside; pt encouraged to assist with repositioning; declined; respositioned to left side; headh of bed elevated; pt encouraged to assist with feedings/ repositioning/speak louder and clearer; mother at bedside feeding pt; will continue to monitor
--- NOTE | 2019-11-29 08:43 | NUR ---
pt awake and more talkative with mother; pt demanding to go outside; pt wanting to smoke; nicotine patch explained per mother; pt noted becoming more agitated; more at bedside attempting to calm pt; will continue to monitor
--- NOTE | 2019-11-29 10:05 | NUR ---
awake in bed; mother present at bedside; sr on monitor; iv intact and patent; no redness or edema noted at site; rajan to gravity; mother assist with all needs; pt encouraged to assist with adls/ attempt to do more for self; suctioned per RT; call light within reach; will continue to monitor
--- NOTE | 2019-11-29 11:00 | NUR ---
complete bath per staff; pt able to wash face with repeative directions/ cues; pt unable to brush teeth on staff command; complete linen change; up to recliner x2 max assist; weak/poor shuffle gait; st on monitor; rajan to gravity; emptied for 750cc vanessa urine; iv intact and patent; o2 sat 87% o2 at 3L NC; RT Barbara called to assess pt in regards to low O2 sat; will continue to monitor
--- NOTE | 2019-11-29 11:21 | NUR ---
mother Delmi at nursing station demanding to speak with RT; mother has been informed this automobile and property underwriter is the pt's nurse; mother upset because "whoever was in here talking to pt about his situation has made him cry"; mother stating she needs help now not later; RT and automobile and property underwriter in to assess pt; mother states that her son is having a stroke; pt displays no s/s of stroke per this automobile and property underwriter; no changes/ worsening in neuro status; Eva Butler RN summoned [facility]; will continue to monitor closely
--- NOTE | 2019-11-29 11:40 | NUR ---
Dr Waite called per staff; no answer; awaiting return call
--- NOTE | 2019-11-29 11:52 | NUR ---
Patient seen in ICU 1 for NIHSS assessment. Patient drowsy but answering questions correctly. Patients sclera yellow and family states private physicians have been monitoring his liver enzymes for past 1.5 years. explained to family NIHSS exam and findings of assessment. Family states patient was staring off into space earlier. Patients visual griggs intact. Patient tracking without difficulty. Patient not dysarthric or asphasic. Patient has no drifts either upper or lower extremities. Patient has fine motor shakes to the tongue. notified
--- NOTE | 2019-11-29 12:00 | NUR ---
Dr Waite present at bedside to assess pt and discuss plan of care; mother Delmi updated on plan of care and need for prn ativan and librium; pt show no s/sx of stroke (assessed per MD); prev CT Scan results explained per MD; DT/ alcohol withdraws explained (pt displaying symptoms); will continue to monitor
--- NOTE | 2019-11-29 12:12 | NUR ---
Dr Waite present at bedside to speak with pt father as per mother request
--- NOTE | 2019-11-29 12:30 | NUR ---
pt more anxious; pt assist back to bed x4 max assist; medicated with libruim; pt tolerated well; parents off unit for lunch; monitoring attachments in place; will continue to monitor
--- NOTE | 2019-11-29 13:58 | NUR ---
asleep/snoring; no apparent distress noted; o2 per nc; iv intact; sr on monitor; will continue to monitor
--- NOTE | 2019-11-29 16:10 | NUR ---
pt awake in bed; no apparent distress noted; pt conversing with staff; calm and cooperative at this time; pt more alert; able to states name, , place and current month/yr; pt requesting to eatch football; aware of [employer] teams playing tomorrow; pt able to assist slightly with repositioning; plan of care explained; sr on monitor; o2 per nc; rajan to gravity; will continue to monitor
--- NOTE | 2019-11-29 17:47 | NUR ---
parents at bedside; parents noted feeding pt; will continue to monitor
--- NOTE | 2019-11-29 18:18 | NUR ---
awake in bed; parents present at bedside; no apparent distress noted; iv intact and patent; o2 per nc; st on monitor; rajan to gravity; pt able to assist with self repositioning; call light within reach
--- NOTE | 2019-11-29 19:35 | NUR ---
patient lays with hob 30 degrees. on 3l/min nc, sats 93%-94%, no sob noted. drowsy but able to awake with verbal stimuli or with noise, is calm. oriented to name, , age, place, month. does have a soft voice, has generalized weakness, industrial safety and health technician bilaterally weak. head to toe nursing assessment performed. r-subcl triple lumen intact, flushes, reurns blood. rajan cath intact, drains to gravity, dark yellow, clear urine noted. poc discussed with parents and pt. call light within reach.
--- NOTE | 2019-11-29 20:25 | NUR ---
FATHER OF PATIENT ASSISTS PATIENT TO LAY ON HIS R-SIDE, PILLOWS PLACED.
--- NOTE | 2019-11-29 21:33 | NUR ---
PATIENT GIVEN BT MEDS. MOTHER AT BEDSIDE, WILL BE STAYING THE NIGHT. PT REPOSITIONED TO L-SIDE, SCD'S PLACED. SHEET PLACED ON TOP ONLY. PT ABLE TO REPORT HIS NEEDS AND ENCOURAGED TO PARTICIPATE WHEN PULLING UP AND REPSOITIONING. CALL LIGHT WITHIN REACH.
--- NOTE | 2019-11-29 23:55 | NUR ---
patient continues to lay on his right side. rests with eyes closed. no acute distress shown. mother at bedside. call light within reach.
[2019-11-30] VITALS (14 sets, daily range): BP systolic 95–127; BP diastolic 47–79
--- NOTE | 2019-11-30 02:02 | NUR ---
MOTHER OF PT UP TO NURSE'S STATION TO REQUEST WATER, SUCTIONING, AND BREATHING TX FOR PT. PATIENT PULLED, LAYS ON HIS LEFT SIDE. DRINKS WATER WITHOUT DIFFICULTY. SUCTIONED SMALL AMOUNTS OF WHITE CLOUDY PHLEGM, PT ENCOURAGED TO COUGH. EMPTIED CORRALES BAG. RT GAVE BR TX. CALLED RT AFTER BR. TX DUE TO PT DESATED FROM 85% TO 91%, TITRATED O2 TO 5L/MIN, ENCOURAGED PT TO DEEP BREATH AND PURSE LIP BREATHING TECHNIQUE. NEEDS VERBAL CUEING. WILL CONTINUE TO MONITOR.
--- NOTE | 2019-11-30 02:20 | NUR ---
REPOSITIONED BP CUFF SINCE BP READ IN THE 90'S SYSTOLIC, PT REQUESTED TO HAVE SCD MACHINE OFF. PT SATS 92%-93% ON 5L/MIN NC. NO SOB NOTED. NO C/O OF SOB.
--- NOTE | 2019-11-30 03:09 | NUR ---
PT'S MOTHER UP TO NURSE'S STATION TO REQUEST A PILLOW, PILLOW PROVIDED.
--- NOTE | 2019-11-30 03:41 | NUR ---
PT SATS 98%-99%, O2 WEANED BACK TO 3 L/MIN.
--- NOTE | 2019-11-30 05:06 | NUR ---
NOTICED ON MONITOR PT DESATED TO 88%, WALKED IN ROOM AND PT HAD TAKEN HIS NC OFF. REMINDED HIM HE NEEDED TO HAVE IT ON SINCE HE WAS NOT OXYGENATING WELL ON HIS OWN.
--- NOTE | 2019-11-30 06:01 | NUR ---
PT LAYS ON HIS R-SIDE. NO ACUTE DISTRESS SHOWN. SATS 98% ON 3L/MIN NC. MOTHER REMAINS AT BEDSIDE. PT RESTS WITH EYES CLOSED. CALL LIGHT WITHIN REACH.
--- NOTE | 2019-11-30 06:38 | NUR ---
PT'S MOTHER AT NURSE'S STATIOM. PT REQUESTS SOMETHINGTO EAT, JELLO PROVIDED. PT ROYA TO TOLERATE THE JELLO AND DRINK WATER. SITS WITH HOB 30 DEGREES. PT STATES, "I DIDN'T SLEEP LAST NIGHT." PT ALSO ABLE TO HELP PULL HIM UP.
--- NOTE | 2019-11-30 07:25 | NUR ---
pt awake in bed; no apparent distress noted; mother present at bedside; assessment completed at this time; pt alert to person and place; confused slightly to year; denies pain; no n/v noted; resp even and unlabored; lungs clear/ diminished bases; skin color wnl; o2 per nc; moist loose cough noted; suction at bedside; hr reg; strong pulses; no edema noted; sr on monitor; bilat scds intact; abd soft with bs present; no bm noted per signwriter; pt passing flatus; rajna to gravity draining clear dk yellow urine; TLC intact to rt subclav with ivf infusing without complication; no redness or edema noted at site; pt able to maew; pt able to pull himseft up in bed; pt admits to feeling better/ increase strength noted per signwriter; plan of care/ am meds explained; call light within reach; will continue to monitor
--- NOTE | 2019-11-30 08:01 | NUR ---
awake in bed; no apparent distress noted; mother at bedside; sr on monitor; iv intact and patent; rajan to gravity; o2 per nc; pt able to self reposition; will continue to monitor
[2019-11-30 09:12] LABS: HEMATOCRIT 34.3 % (39.0-50.0); HEMOGLOBIN 11.6 g/dl (14.0-18.0); MEAN CELL VOLUME 96.3 fL CALC (80.0-100.0); MEAN CORPUSCULAR HGB 32.6 pG CALC (26.0-32.0); MEAN CORPUSCULAR HGB CONC 33.8 g/L CALC (32.0-36.0); NEUT# 4.84 thou/uL (1.82-7.42); RED BLOOD COUNT 3.56 mill/uL (4.70-6.10); RED CELL DISTRI WIDTH 12.2 % (11.5-15.5)
[2019-11-30 09:29] LABS: ALBUMIN 3.1 g/dL (3.2-5.0); ANION GAP 11 (6-22 (CALC)); BILIRUBIN, TOTAL 2.4 mg/dL (0.0-1.4); BUN 7 mg/dL (9-20); BUN/CREATININE RATIO 14 (12-20 (CALC)); CARBON DIOXIDE 30 mmol/l (22-30); CHLORIDE 96 mmol/l (95-108); CREATININE 0.5 mg/dL (0.7-1.3); GFR > 60 ML/MIN (>=60 (CALC)); GFR FOR AFR.AMER. > 60 ML/MIN (>=60 (CALC)); MAGNESIUM 1.6 mg/dL (1.6-2.3); POTASSIUM 3.2 mmol/l (3.5-5.1); SGOT/AST 81 u/l (17-59); SODIUM 134 mmol/l (137-146)
[2019-11-30 09:31] LABS: IMMATURE GRANULOCYTES 16.7 % (0.0-5.0)
[2019-11-30 09:33] LABS: ALKALINE PHOSPHATASE 160 u/l (38-126)
--- NOTE | 2019-11-30 10:15 | NUR ---
parents at bedside; no apparent distress noted; iv intact and patent; no redness or edema noted at site; sr on monitor; o2 per nc; rajan to gravity; call light within reach; will continue to monitor
--- NOTE | 2019-11-30 12:00 | NUR ---
pt awake in bed; no apparent distress noted; pt offers no complaints; iv intact and patent; no redness or edema noted at site; sr on mointor; rajan to gravity; family present at bedside; call light within reach; will continue to monitor
--- NOTE | 2019-11-30 12:15 | NUR ---
Dr Waite present at bedside to assess pt and discuss plan of care;
--- NOTE | 2019-11-30 12:45 | NUR ---
soft diet provided; pt tolerating well; no s/sx of aspiration noted; pt able to feed self; call light within reach; will continue to monitor
--- NOTE | 2019-11-30 14:15 | NUR ---
resting in bed with eyes closed; no apparent distress noted; resp even and unlabored; o2 per nc; iv intact; rajan to gravity; sr on monitor; call light within reach; will continue to monitor
--- NOTE | 2019-11-30 16:00 | NUR ---
awake in bed; no appaent distress noted at this time; rajan to gravity; iv intact and patent; fluids infusing without complication; no redness or edema noted site; sr on monitor; o2 per nc; pt with audible hallucinations; pt calls race and sports book writer to room and states "It's all a scam, it happened to me years ago"; questioned as to what was a scam; pt states "I heard them talking about a free 1 day trip"; TV currently off; reassured; pt calm and cooperative; call light within reach; will continue to monitor
--- NOTE | 2019-11-30 17:58 | NUR ---
awake in bed feeding himself dinner; no apparent distress noted; pt offers no complaints; iv intact and patent; no redness or edema noted at site; o2 per nc; rajan to gravity; call light within reach
--- NOTE | 2019-11-30 18:45 | NUR ---
REPORT FROM Brendan ZIEGLER RN. ASSUMED PT. CARE.
--- NOTE | 2019-11-30 19:50 | NUR ---
PT. RESTING IN BED IN NO DISTRESS. SOMEWHAT TREMULOUS WITH INTENTIONAL MOVEMENTS. RESTING IN BED HOWEVER, NO TREMORS NOTED. PT. DENIES ANXIETY. RESPS EVEN AND UNLABORED. SKIN WARM AND DRY. AFEBRILE. MAE. TURPIN. PT. DENIES COMPLAINTS OF PAIN OR NEED AT THIS TIME. LUNGS CTA. BOWEL SOUNDS ACTIVE. S1, S2 NOTED. NO EDEMA NOTED. DISTIL PULSES INTACT. ALERT, ORIENTED X 3. UPDATED ON PLAN OF CARE. PT. INFORMED THAT WE WOULD GET HIM UP THIS AM AND GET HIM WASHED UP AND INTO A CHAIR. CALL LIGHT WITHIN REACH. PARENTS AT BEDSIDE AT THIS TIME. PT. DENIES PAIN. WILL CONTINUE TO CLOSELY MONITOR.
--- NOTE | 2019-11-30 21:45 | NUR ---
PT. MEDICATED PER PHYSICIAN ORDERS. CALL LIGHT REMAINS WITHIN REACH. RESPS REMAIN EVEN AND UNLABORED. MOTHER REMAINS AT BEDSIDE AT THIS TIME.
--- NOTE | 2019-11-30 22:30 | NUR ---
NEB TREATMENT COMPLETE AT THIS TIME. PT. VOICES NO COMPLAINTS OR NEEDS. CALL LIGHT REMAINS WITHIN REACH. WILL CONTINUE TO MONITOR.
[2019-12-01] VITALS (11 sets, daily range): BP systolic 83–139; BP diastolic 44–78
--- NOTE | 2019-12-01 00:15 | NUR ---
ZOSYN INFUSING ORDERED. NO REACTIONS NOTED. PT. VOICES NO COMPLAINTS OR NEEDS AT THIS TIME. CALL LIGHT REMAINS WITHIN REACH. MOTHER REMAINS AT BEDSIDE AT THIS TIME. CORRALES DRAINING TO GRAVITY.
--- NOTE | 2019-12-01 02:05 | NUR ---
VANCOMYCIN INFUSING WITHOUT SIGNS OF REACTIONS. RESPS REMAIN EVEN AND UNLABORED. SKIN REMAINS WARM AND DRY. AFEBRILE. CALL LIGHT REMAINS WITHIN REACH. WILL CONTINUE TO MONITOR.
--- NOTE | 2019-12-01 04:05 | NUR ---
PT. REMAINS EASILY AROUSABLE TO LIGHT VERBAL STIMULI. AFEBRILE. VOICES NO COMPLAINTS OR NEEDS AT THIS TIME. CALL LIGHT WITHIN REACH.
--- NOTE | 2019-12-01 05:00 | NUR ---
LABS OBTAINED AT THIS TIME. CENTRAL LINES FLUSHED. CALL LIGHT REMAINS WIHTIN REACH. MOTHER REMAINS AT BEDSIDE. PT. VOICES NO COMPLAINTS OR NEEDS AT THIS TIME. UPDATED ON AM PLAN OF CARE. WILL CONTINUE TO MONITOR.
[2019-12-01 05:16] LABS: HEMATOCRIT 32.6 % (39.0-50.0); HEMOGLOBIN 10.9 g/dl (14.0-18.0); MEAN CELL VOLUME 97.6 fL CALC (80.0-100.0); MEAN CORPUSCULAR HGB 32.6 pG CALC (26.0-32.0); MEAN CORPUSCULAR HGB CONC 33.4 g/L CALC (32.0-36.0); NEUT# 3.99 thou/uL (1.82-7.42); RED BLOOD COUNT 3.34 mill/uL (4.70-6.10); RED CELL DISTRI WIDTH 12.5 % (11.5-15.5)
[2019-12-01 05:35] LABS: IMMATURE GRANULOCYTES 20.3 % (0.0-5.0)
[2019-12-01 05:43] LABS: ALBUMIN 2.9 g/dL (3.2-5.0); ALKALINE PHOSPHATASE 149 u/l (38-126); ANION GAP 9 (6-22 (CALC)); BILIRUBIN, TOTAL 1.7 mg/dL (0.0-1.4); BUN 5 mg/dL (9-20); BUN/CREATININE RATIO 12 (12-20 (CALC)); CARBON DIOXIDE 30 mmol/l (22-30); CHLORIDE 102 mmol/l (95-108); CREATININE 0.5 mg/dL (0.7-1.3); GFR > 60 ML/MIN (>=60 (CALC)); GFR FOR AFR.AMER. > 60 ML/MIN (>=60 (CALC)); POTASSIUM 3.1 mmol/l (3.5-5.1); SGOT/AST 102 u/l (17-59); SODIUM 138 mmol/l (137-146); TOTAL PROTEIN 5.7 g/dL (6.3-8.2)
--- NOTE | 2019-12-01 05:55 | NUR ---
PATIENT TAKEN TO MED/SURG FOR SHOWER.
--- NOTE | 2019-12-01 06:59 | NUR ---
DR BAUMANN NOTIFIED OF PT HYPOTENSION. ORDERED 500ML BOLUS OF REST OF IVF BAG & PORT CXR.
--- NOTE | 2019-12-01 07:45 | NUR ---
MOM EDUCATED, AND GIVEN DC EDUCATION PRINTOUT RE: LIBRIUM.
--- NOTE | 2019-12-01 08:00 | NUR ---
PT OBSERVED TRANSFERING SELF FROM RECLINER TO BED. STAFF REARRANGED PTS ATTACHMENTS x2 TO PTS MOMS LIKING. PT REMINDED NOT TO GET UP W/OUT STAFF ASSISTANCE.
--- NOTE | 2019-12-01 08:15 | NUR ---
DR BAUMANN @BEDSIDE WITH PT/MOM. WILL TRANSFER PT TO [facility] & ORDERED PHYSICAL THERAPY CONSULT.
--- NOTE | 2019-12-01 08:55 | NUR ---
DAVID STEPHEN. URINAL PLACED W/IN REACH. PT UPDATED ON POC.
--- NOTE | 2019-12-01 09:15 | NUR ---
PT HELD IN ICU D/T STAFFING ON [facility]SU.
--- NOTE | 2019-12-01 09:52 | NUR ---
RT @BEDSIDE FOR BREATHING TREATMENT.
--- NOTE | 2019-12-01 11:43 | NUR ---
MOM MIMEING NOT TO GIVE PT ANY LIBRIUM. ADVISED MOM THAT IT WOULD BE PTSCHOICE TO HAVE MEDICATION OR NOT. PT STILL WITH TREMORS TO HANDS, VERY SHAKY FEEDING SELF & UNSTEADY GAIT.
--- NOTE | 2019-12-01 13:33 | NUR ---
RT @BEDSIDE FOR BREATING TREATMENT.
--- NOTE | 2019-12-01 14:11 | NUR ---
DISCUSSED REHAB POSTDC WITH KAREN DILLARD.
--- NOTE | 2019-12-01 14:40 | NUR ---
PT SLEEPING ON RIGHT SIDE, TURNS SELF, USING MANY PILLOWS. WILL CONTINUE TO MONITOR.
--- NOTE | 2019-12-01 15:40 | NUR ---
PHYSICAL THERAPY @BEDSIDE, WALKING PT AROUND HALLS USING WALKER.
--- NOTE | 2019-12-01 17:06 | NUR ---
DR BAUMANN @BEDSIDE WITH PT & PARENTS DISCUSSING POC & DC & REHAB
[2019-12-01] MEDS ORDERED: NICOTINE T21 MG/242 TD (17:15)
[2019-12-01] MEDS ORDERED: NICOTINE T7 MG/24 H1 TD (17:15)
[2019-12-01] MEDS ORDERED: NICOTINE T14 MG/241 TD (17:15)
[2019-12-01] MEDS ORDERED: AMOX/K CLAV875 M1 PO (17:15)
--- NOTE | 2019-12-01 17:45 | NUR ---
CENTRAL LINE DC'D, DRESSING APPLIED TO AREA. PT DISCONNNECTED FROM MONITORS. DAD HELPING PT GET DRESSED.
--- NOTE | 2019-12-01 18:08 | NUR ---
PT OUT THE DOOR BY WC WITH MOM & DAD IN STABLE CONDITION & ALL BELONGINGS
== END 2019-12-01 18:08 | disposition home or self-care (01) | DRG 896 ==
LOC: ED 05:11 → ED-I 08:18 → ED 08:31 → ICU 08:31
PROVIDERS: Emergency Medicine; Internal Medicine; Nurse Practitioner Family; ADMIT Internal Medicine; ATTEND Internal Medicine
PROC: 0T9B70Z Drainage of Bladder with Drainage Device, Via Natural or Artificial Opening (ICD-10-PCS; principal; 2019-11-24)
PROC: 0BH17EZ Insertion of Endotracheal Airway into Trachea, Via Natural or Artificial Opening (ICD-10-PCS; 2019-11-24)
PROC: 5A1955Z Respiratory Ventilation, Greater than 96 Consecutive Hours (ICD-10-PCS; 2019-11-24)
PROC: 02HV33Z Insertion of Infusion Device into Superior Vena Cava, Percutaneous Approach (ICD-10-PCS; 2019-11-26)
DX: F10.231 Alcohol dependence with withdrawal delirium (principal); A41.9 Sepsis, unspecified organism; J69.0 Pneumonitis due to inhalation of food and vomit; J96.01 Acute respiratory failure with hypoxia; G40.89 Other seizures; F10.229 Alcohol dependence with intoxication, unspecified; G62.9 Polyneuropathy, unspecified; R74.0 Nonspecific elevation of levels of transaminase and lactic acid dehydrogenase [LDH]; E87.6 Hypokalemia; E83.39 Other disorders of phosphorus metabolism; F17.200 Nicotine dependence, unspecified, uncomplicated; Z78.1 Physical restraint status
CPT/HCPCS: J1650; J2060; J3370; J3475